=== PATIENT | female | born 1995 | race Caucasian/White ===

== ENCOUNTER 2017-12-08 04:32 | Emergency (ER) | payer OTHER ==
[~2017-12-08] VITALS: Ht 175.3 cm; Wt 158.8 kg
[~2017-12-08 04:32] MED LIST: ALBIPROI INH; ALBU90OI; ALBU90OI INH; ALBU90OI6 INH; AMOCLA875 PO; AMOX500 PO; AZIT250 PO; CEPH500 PO; CIPR250 PO; CLAR500 PO; CODGUAEL PO; CYCL10 PO; Flomax0.4 MG PO; HYDACE5 PO; HYDGUAL120 PO; IBUP800 PO; METF500 PO; METPRE4DP PO; Mucinex600 MG PO; NAPR500 PO; NEOPOLHCSU OT; Naprosyn500 MG PO; ONDA8 PO; OXYACE5T PO; PENVK500 PO; PHENA200 PO; PROM25 PO; Percocet 5-3251 EACH PO; Prednisone20 MG PO; SERT50 PO; SULTRIDS PO; TAMS.4ER PO; TRAM50 PO; UNKNOWN ANTIBIOTIC; VENL75ER PO; ZOLOFT; Zofran Odt4 MG SL; [UNRECOGNIZED DRUG - REMARK]
[2017-12-08 05:55] LABS: BASOPHILS ABSOLUTE AUTO 0.04 K/mm3 (0.00-0.23); BASOPHILS PERCENT AUTO 0 % (0-2); EOSINOPHILS ABSOLUTE AUTO 0.31 K/mm3 (0.00-0.68); EOSINOPHILS PERCENT AUTO 2 % (0-6); Hematocrit 39.5 % (33.0-51.0); Hemoglobin 12.9 g/dL (11.5-16.0); IMMATURE GRAN ABSOLUTE AUTO 0.04 K/mm3 (0.00-0.10); IMMATURE GRAN PERCENT AUTO 0 % (0-1); LYMPHOCYTES ABSOLUTE AUTO 2.47 K/mm3 (0.84-5.20); LYMPHOCYTES PERCENT AUTO 18 % (21-46); MONOCYTES ABSOLUTE AUTO 0.84 K/mm3 (0.16-1.47); MONOCYTES PERCENT AUTO 6 % (4-13); Mean Corpuscular HGB 27.7 pg (26.0-34.0); Mean Corpuscular HGB Conc 32.7 g/dL (31.5-36.5); Mean Corpuscular Volume 85 fL (80-100); Mean Platelet Volume 9.8 fL (9.1-12.4); NEUTROPHILS ABSOLUTE AUTO 9.78 K/mm3 (1.96-9.15); NEUTROPHILS PERCENT AUTO 73 % (41-73); Platelet Count 368 K/mm3 (150-400); RDW Coefficient Variation 12.6 % (11.7-14.2); RDW Standard Deviation 38.5 fL (35.1-46.3); Red Blood Cell Count 4.66 M/mm3 (3.80-5.20); White Blood Cell Count 13.48 K/mm3 (4.00-11.30)
[2017-12-08 06:11] LABS: Anion Gap 9 mmol/L (6-16); Blood Urea Nitrogen 9 mg/dL (8-24); CO2, Blood 24 mmol/L (21-32); Calcium, Blood 8.3 mg/dL (8.5-10.1); Chloride, Blood 109 mmol/L (98-108); Creatinine, Blood 0.56 mg/dL (0.40-1.00); Glomerular Filtration Rate >60 (60-); Glucose, Blood 90 mg/dL (70-99); Potassium, Blood 3.8 mmol/L (3.5-5.5); Sodium, Blood 142 mmol/L (136-145)
== END 2017-12-08 06:00 | disposition home or self-care (01) ==
LOC: ER 04:32
PROVIDERS: Emergency Medicine
DX: N13.2 Hydronephrosis with renal and ureteral calculous obstruction (principal); Z88.5 Allergy status to narcotic agent; Z91.018 Allergy to other foods; Z79.899 Other long term (current) drug therapy; J45.909 Unspecified asthma, uncomplicated; F32.9 Major depressive disorder, single episode, unspecified; F41.9 Anxiety disorder, unspecified
CPT/HCPCS: 36415; 74176; 80048; 81025; 85025; 96374; 96375; 99284; J1885; J2405

== ENCOUNTER 2017-12-12 19:57 | Emergency (ER) | payer OTHER ==
[~2017-12-12] VITALS: Ht 175.3 cm; Wt 158.8 kg
== END 2017-12-12 21:18 | disposition left against medical advice (07) ==
LOC: ER 19:57
DX: Z53.21 Procedure and treatment not carried out due to patient leaving prior to being seen by health care provider (principal)

== ENCOUNTER 2019-11-13 13:02 | Emergency (ER) | payer OTHER ==
[~2019-11-13] VITALS: Ht 175.3 cm; Wt 158.8 kg
[2019-11-13] MEDS ORDERED: IBU800 M1 PO (17:59)
[2019-11-13] MEDS ORDERED: Cyclobenzaprine5 MG PO (17:59)
[2019-11-13] MEDS ORDERED: Roxicodone5 MG PO (17:59)
== END 2019-11-13 18:32 | disposition home or self-care (01) ==
LOC: ER 13:02
DX: S39.012A Strain of muscle, fascia and tendon of lower back, initial encounter (principal); F32.9 Major depressive disorder, single episode, unspecified; F41.9 Anxiety disorder, unspecified; Z91.018 Allergy to other foods; Z88.5 Allergy status to narcotic agent; W01.0XXA Fall on same level from slipping, tripping and stumbling without subsequent striking against object, initial encounter
CPT/HCPCS: 72100; 96372; 99283-25; J1100; J1885; J3010

== ENCOUNTER 2025-08-27 07:05 | Emergency (ER) | payer SELFPAY ==
[~2025-08-27] VITALS: Ht 162.6 cm; Wt 145.2 kg
[~2025-08-27 07:05] MED LIST changes: +Cyclobenzaprine5 MG PO; +IBU800 M1 PO; +Roxicodone5 MG PO
[2025-08-27] MEDS ORDERED: Ondansetron 4 MG SoluTab SL PRN (07:35)
[2025-08-27 09:16] LABS: Source, Urine Clean Catch
[2025-08-27 09:19] LABS: Bilirubin, Urine Neg (Neg); Color, Urine Yellow (P-Yellow); Glucose Qualitative, Urine Neg (Neg); Ketones, Urine Neg (Neg); Leukocyte Esterase, Urine Neg (Neg); Protein, Urine Neg (Neg); Specific Gravity, Urine 1.010 (1.003-1.022); Urobilinogen, Urine NORM (Normal)
[2025-08-27 09:25] LABS: Red Blood Cells, Urine Not Seen /hpf (0-2); White Blood Cells, Urine 0-2 /hpf (0-5)
[2025-08-27 09:52] LABS: BASOPHILS ABSOLUTE AUTO 0.01 K/mm3 (0.00-0.23); BASOPHILS PERCENT AUTO 0 % (0-2); EOSINOPHILS ABSOLUTE AUTO 0.20 K/mm3 (0.00-0.68); EOSINOPHILS PERCENT AUTO 3 % (0-6); Hematocrit 35.5 % (33.0-51.0); Hemoglobin 11.7 g/dL (11.5-16.0); IMMATURE GRAN ABSOLUTE AUTO 0.01 K/mm3 (0.00-0.10); IMMATURE GRAN PERCENT AUTO 0 % (0-1); LYMPHOCYTES ABSOLUTE AUTO 1.45 K/mm3 (0.84-5.20); LYMPHOCYTES PERCENT AUTO 18 % (21-46); MONOCYTES ABSOLUTE AUTO 0.46 K/mm3 (0.16-1.47); MONOCYTES PERCENT AUTO 6 % (4-13); Mean Corpuscular HGB Conc 33.0 g/dL (31.5-36.5); Mean Corpuscular Volume 81 fL (80-100); NEUTROPHILS ABSOLUTE AUTO 6.03 K/mm3 (1.96-9.15); NEUTROPHILS PERCENT AUTO 74 % (41-73); NRBC ABSOLUTE 0.00 K/mm3 (0.00-0.02); NRBC Auto 0.0 /100 WBC (0.0-0.2); Platelet Count 323 K/mm3 (150-400); RDW Coefficient Variation 13.2 % (11.7-14.2); RDW Standard Deviation 39.6 fL (35.1-46.3)
[2025-08-27 10:19] LABS: Alanine Aminotransfer (ALT/SGP 27 U/L (12-78); Albumin, Blood 3.3 g/dL (3.4-5.0); Albumin/Globulin Ratio 0.8 (0.8-1.8); Anion Gap 7 mmol/L (3-11); Aspartate Aminotrans (AST/SGOT 12 U/L (12-37); Bilirubin, Total 0.5 mg/dL (0.1-1.0); Blood Urea Nitrogen 11 mg/dL (8-24); CO2, Blood 27 mmol/L (21-32); Calcium, Blood 8.9 mg/dL (8.5-10.1); Chloride, Blood 107 mmol/L (98-108); Creatinine, Blood 0.57 mg/dL (0.40-1.00); Globulin, Blood 3.9 g/dL (2.2-4.0); Glucose, Blood 93 mg/dL (70-99); Potassium, Blood 3.9 mmol/L (3.5-5.5); Sodium, Blood 137 mmol/L (136-145); Thyroid Stimulating Hormone <0.005 uIU/mL (0.360-4.800); Total Protein, Blood 7.2 g/dL (6.4-8.2)
[2025-08-27] MEDS ORDERED: Diazepam 5 MG / ML 2ML SYR IV ONE (10:35)
[2025-08-27] MEDS ORDERED: MIRALAX17 GM PO (12:32)
[2025-08-27] MEDS ORDERED: SENNA LAXATIVE8.6 MG PO (12:32)
[2025-08-27] MEDS ORDERED: LACT10SY PO (12:32)
[2025-08-27] MEDS ORDERED: DOCU100 PO (12:32)
[2025-08-27] MEDS ORDERED: HYDHCL25 PO (12:33)
[2025-08-27 12:45] VITALS: BP 146/68
== END 2025-08-27 12:52 | disposition home or self-care (01) ==
LOC: ER 07:05
PROVIDERS: Student in an Organized Health Care Education/Training Program
DX: K59.00 Constipation, unspecified (principal); F32.A Depression, unspecified; J45.909 Unspecified asthma, uncomplicated; Z88.5 Allergy status to narcotic agent; Z91.018 Allergy to other foods
CPT/HCPCS: 74018; 80053; 81001; 84439; 84443; 84481; 84484; 85025; A9270; J3360

== ENCOUNTER 2025-08-29 05:57 | Emergency (ER) | payer SELFPAY ==
[~2025-08-29] VITALS: Ht 175.3 cm; Wt 138.3 kg
[~2025-08-29 05:57] MED LIST changes: +DOCU100 PO; +HYDHCL25 PO; +LACT10SY PO; +MIRALAX17 GM PO; +SENNA LAXATIVE8.6 MG PO
[2025-08-29] MEDS ORDERED: Lactulose 200 GM/300 ML Enema 300ML BTL PR ONE (07:55)
[2025-08-29 10:00] VITALS: BP 143/86
== END 2025-08-29 10:32 | disposition home or self-care (01) ==
LOC: ER 05:57
DX: K56.41 Fecal impaction (principal); J45.909 Unspecified asthma, uncomplicated; Z88.5 Allergy status to narcotic agent; Z91.018 Allergy to other foods
CPT/HCPCS: 74018; 99283-25; A9270